=== PATIENT | male | born 1990 | race African-American/Black ===

== ENCOUNTER 2023-01-17 18:14 | Emergency (ER) | payer OTHER ==
--- NOTE | 2023-01-17 18:31 | ED Physician Documentation ---
PD HPI URI - Stated complaint Stated Complaint: COUGH/RUNNY NOSE/HEAD PX - History obtained from History obtained from: Patient - History of Present Illness Timing - onset: Yesterday Timing duration: Days (2) Timing details: Abrupt onset, Still present Associated symptoms: Fever, Nasal congestion, Sore throat, Dry cough, Dyspnea. No: NVD Contributing factors: No: Immunocompromised, Unimmunized, COPD / asthma Similar symptoms before: Diagnosis (he says feels similar to COVID he had couple of years ago.) Review of Systems Constitutional: reports: Fever, Myalgias Nose: reports: Rhinorrhea / runny nose, Congestion Throat: reports: Sore throat Respiratory: reports: Dyspnea, Cough. denies: Wheezing PD PAST MEDICAL HISTORY - Past Medical History Cardiovascular: None Respiratory: None Endocrine/Autoimmune: None - Present Medications Home Medications: Ambulatory Orders Medication Instructions Recorded Confirmed Albuterol Sulf [Ventolin Hfa 2 - 3 puffs INH Q4HR PRN #1 each 01/17/23 Inhaler] Ibuprofen [Motrin] 600 mg PO TID PRN #20 tab 01/17/23 guaiFENesin/DEXTROMETHORPHAN 10 ml PO Q6H PRN #240 ml 01/17/23 [Robitussin Dm] - Allergies Allergies/Adverse Reactions: Allergies Allergy/AdvReac Type Severity Reaction Status Date / Time No Known Drug Allergies Allergy Verified 01/17/23 18:33 PD ED PE NORMAL - Vitals Vital signs reviewed: Yes - General General: Alert and oriented X 3, No acute distress, Well developed/nourished - HEENT HEENT: PERRL (some hyperemia of the conjunctivae without discharge. ), Ears normal, Pharynx benign - Neck Neck: Supple, no meningeal sign, No adenopathy - Cardiac Cardiac: RRR, No murmur - Respiratory Respiratory: No: Clear bilaterally (mild expiratory scattered wheezes. No coarse sounds. ) - Derm Derm: Normal color, Warm and dry Results - Vitals Vitals: Vital Signs - 24 hr 01/17/23 01/17/23 18:25 19:10 Temperature 37.3 C Heart Rate 95 86 Respiratory 18 20 Rate Blood Pressure 164/80 H O2 Saturation 100 Oxygen O2 Source Room air PD Medical Decision Making - ED course Complexity details: considered differential (seems like uri. he would like to know if covid or flu, so can test him. He can look up results later this evening on portal. ), d/w patient Departure - Departure Disposition: 01 Home, Self Care Clinical Impression: Upper respiratory infection Qualifiers: URI type: unspecified URI Qualified Code(s): J06.9 - Acute upper respiratory infection, unspecified Condition: Stable Record reviewed to determine appropriate education?: Yes Instructions: ED Upper Resp Infec No Abx Tx Prescriptions: Albuterol Sulf [Ventolin Hfa Inhaler] 2 - 3 puffs INH Q4HR PRN #1 each PRN Reason: Shortness Of Air/Wheezing Ibuprofen [Motrin] 600 mg PO TID PRN #20 tab PRN Reason: Pain guaiFENesin/DEXTROMETHORPHAN [Robitussin Dm] 10 ml PO Q6H PRN #240 ml PRN Reason: Cough Comments: This does sound like a viral type illness. COVID is a possibility as are other viral illnesses. The respiratory PCR viral test should result in an hour or 2. We can send you home at this point in you can look up the results online through the patient portal. They would be available later this evening. We will treat the symptoms largely. Home and rest for a day or 2 likely. Stay well-hydrated. Use some anti-inflammatory such as ibuprofen 3 times daily with food to help with fevers and pains. Add Tylenol every 4-6 hours if needed for pains. Wrote guaifenesin with dextromethorphan cough syrup every 4-6 hours if needed for cough. He likely will have some element of trouble breathing with the cough and this can get improved with an albuterol inhaler 2 to 3 puffs 4 times a day if needed. I sent these prescriptions to the [facility] pharmacy in [place]. I provided a work note for 1 to 2 days anyway if needed. Forms: Activity restrictions Discharge Date/Time: 01/17/23 19:30
[2023-01-17 18:33] VITALS: BP 164/80
[2023-01-17] MEDS ORDERED: ALBUTEROL 1 PUFF INH STA (18:44)
[2023-01-17] MEDS ORDERED: CETIRIZINE 10 MG TABLET PO STA (18:44)
[2023-01-17] MEDS ORDERED: ACETAMINOPHEN 325 MG TABLET PO STA (18:44)
[2023-01-17] MEDS ORDERED: guaiFENesin 100 MG/5 ML UDC PO STA (18:44)
[2023-01-17] MEDS ORDERED: IBUPROFEN 600 MG TABLET PO STA (18:44)
== END 2023-01-17 19:30 | disposition home or self-care (01) ==
LOC: ED 18:14
DX: J06.9 Acute upper respiratory infection, unspecified (principal)
CPT/HCPCS: 94640; 94664; 99283; A9270

== ENCOUNTER 2023-04-17 10:14 | Outpatient (CLI) | payer OTHER ==
--- NOTE | 2023-04-17 12:02 | MRI Report ---
PROCEDURE: BRAIN WO INDICATIONS: MIGRAINE TECHNIQUE: Noncontrast axial T1 spin echo, axial T2 fast spin echo, sagittal and axial FLAIR, coronal T2 fast sp in echo, axial gradient echo, axial diffusion and ADC through the brain. COMPARISON: None. FINDINGS: Image quality: Excellent. CSF Spaces: Basal cisterns are patent. No extra-axial fluid collections. Ventricles are normal in size and shape. Brain: No intracranial masses or hemorrhage. Gunderson/white matter interface is normal. Brainstem appe ars normal. Diffusion-weighted images demonstrate no acute ischemic insult. No chronic ischemic ins ults. Normal intravascular flow voids are present. Skull and face: Calvarium has normal marrow signal. Orbits appear normal. Sinuses: Sinuses and mastoids are clear. IMPRESSION: MRI brain without acute intracranial abnormalities. No evidence for mass or mass effect. Reviewed by: Kaiden Nieto MD on 04/17/2023 12:01 PM PDT Approved by: Kaiden Nieto MD on 04/17/2023 12:01 PM PDT Station ID: [id number]
== END 2023-04-17 10:15 | disposition home or self-care (01) ==
LOC: DI 10:14
PROVIDERS: ATTEND Physician Assistant
DX: G43.909 Migraine, unspecified, not intractable, without status migrainosus (principal)